=== PATIENT | male | born 1985 | race Caucasian/White ===

== ENCOUNTER 2019-12-28 09:11 | Emergency (ER) | payer OTHER ==
[~2019-12-28] VITALS: Ht 175.3 cm; Wt 77.1 kg
[2019-12-28 09:16] VITALS: Ht 175.3 cm; Wt 77.1 kg
[2019-12-28 12:28] VITALS: BP 137/65
== END 2019-12-28 12:28 | disposition other institution (70) ==
LOC: ED 09:11
DX: F19.10 Other psychoactive substance abuse, uncomplicated (principal)
CPT/HCPCS: Q0092

== ENCOUNTER 2019-12-28 09:11 | Emergency (ER) | payer OTHER | END 2019-12-28 12:28 | disposition other institution (70) | LOC: ED 09:11 | DX: Z02.89 Encounter for other administrative examinations (principal) ==